=== PATIENT | male | born 1990 | race African-American/Black ===

== ENCOUNTER 2016-08-10 17:40 | Emergency (ER) | payer SELFPAY ==
[~2016-08-10] VITALS: Ht 167.6 cm; Wt 68.9 kg
[2016-08-10 17:53] VITALS: BP 116/76
[2016-08-10] MEDS ORDERED: Lidocaine 1% MPF 10mg/ml 5ml ONE (18:10)
[2016-08-10] MEDS ORDERED: VIBRAMYCIN100 MG ORAL (18:11)
--- NOTE | 2016-08-10 18:11 | Emergency Room Report ---
History of Present Illness General Chief Complaint: Male Urogenital Problems Source: Patient Present Illness HPI 25 yO Male presents to the ED c/o yellow-green penile d/c x 2 days with mild dysuria. pt reports recent unprotected intercourse. denies lesions, hematuria, or LAD. denies abdominal pain, n/v/f/c. Denies rashes, testicular pain or swelling. Denies CP, Palpitations, LOC, AMS, dizziness, Changes in Vision, Sensation, paresthesias, or a sudden severe headache. Allergies: Coded Allergies: No Known Allergies (Unverified , 08/10/16) Patient History Past Medical History: see triage record Past Surgical History: none Pertinent Family History: none Immunizations: UTD Reviewed Nursing Documentation: PMH: Agreed, PSxH: Agreed Nursing Documentation-PMH Past Medical History: No Stated History Review of Systems All Other Systems: negative except mentioned in HPI Physical Exam Vital Signs Date Time Temp Pulse Resp B/P Pulse Ox O2 Delivery O2 Flow Rate FiO2 08/10/16 17:48 97.5 93 14 116/76 97 Room Air Sp02 EP Interpretation: reviewed, normal General Appearance: no apparent distress, alert, GCS 15, non-toxic Head: normocephalic, atraumatic Eyes: bilateral eye PERRL, bilateral eye normal inspection ENT: hearing grossly normal, normal pharynx, no angioedema, normal voice Neck: full range of motion, supple/symm/no masses Respiratory: chest non-tender, lungs clear, normal breath sounds, speaking full sentences Cardiovascular #1: regular rate, rhythm, no edema Gastrointestinal: normal bowel sounds, non tender, soft, no guarding, no rebound Rectal: deferred Genitourinary: normal inspection, no CVA tenderness, penis normal, other - yellow-white d/c expressed from penis, no lesions, no erythema,no lad, no testicular pain. Musculoskeletal: back normal, gait/station normal, normal range of motion Neurologic: alert, oriented x3, responsive, motor strength/tone normal, sensory intact, speech normal Psychiatric: judgement/insight normal, memory normal, mood/affect normal, no suicidal/homicidal ideation Skin: normal color, no rash, warm/dry, well hydrated Lymphatic: no adenopathy Medical Decision Making PA Attestation Dr. Ayala is my supervising Physician whom patient management has been discussed with. Diagnostic Impression: Primary Impression: Penile discharge ER Course 25 yO Male presents to the ED c/o yellow-green penile d/c x 2 days with mild dysuria. pt reports recent unprotected intercourse. denies lesions, hematuria, or LAD. denies abdominal pain, n/v/f/c. Ddx considered but are not limited to UTi , STI, G & C, trichomonas, urethritis Vital signs: are WNL, pt. is afebrile H&PE are most consistent with urethritis will treat prophylactically ORDERS: - Urine G & C: Pending ED INTERVENTIONS: -250mg Rocephin IM DISCHARGE: At this time pt. is stable for d/c to home. Will provide printed patient care instructions, and any necessary prescriptions. Care plan and follow up instructions have been discussed with the patient prior to discharge. Last Vital Signs Date Time Temp Pulse Resp B/P Pulse Ox O2 Delivery O2 Flow Rate FiO2 08/10/16 17:53 97.5 87 14 116/76 99 Room Air Disposition: HOME, SELF-CARE Condition: Stable Scripts Doxycycline Hyclate* (VIBRAMYCIN*) 100 Mg Capsule 100 MG ORAL EVERY 12 HOURS for 7 Days, #14 CAP 0 Refills Prov: Kori Curtis 08/10/16 Patient Instructions: Urethritis, Adult Additional Instructions: Take medications as directed. MAKE SURE YOUR PARTNERS GET TREATED WITH ANTIBIOTICS to prevent becoming re- infected No intercourse for 7-10 days, as you are infectious and can spread the bacterial infection. Follow up with PCP in 3-5 days Return sooner to ED if new symptoms occur, or current symptoms become - Please note that this Emergency Department Report was dictated using My [employer] App[employer] aide technology software, occasionally this can lead to erroneous entry secondary to interpretation by the dictation equipment. Kori Curtis Aug 10, 2016 18:11
[2016-08-10 18:20] VITALS: BP 116/76
== END 2016-08-10 18:20 | disposition home or self-care (01) ==
LOC: EMR 18:11
DX: R36.9 Urethral discharge, unspecified (principal)
CPT/HCPCS: 87491; 87590; 96372; 99283; J0696

== ENCOUNTER 2017-08-18 02:06 | Emergency (ER) | payer OTHER ==
[~2017-08-18] VITALS: Ht 167.6 cm; Wt 70.3 kg
[~2017-08-18 02:06] MED LIST: VIBRAMYCIN100 MG ORAL
[2017-08-18] MEDS ORDERED: NKM (02:11)
[2017-08-18 02:22] VITALS: BP 135/85
[2017-08-18] MEDS ORDERED: Lidocaine 1% MPF 10mg/ml 5ml INJ ONE (02:30)
[2017-08-18] MEDS ORDERED: Azithromycin 250mg tab ORAL ONE (02:30)
[2017-08-18] MEDS ORDERED: cefTRIAXone 1 GM in NS 55 ML IVPB ONE (02:30)
--- NOTE | 2017-08-18 02:33 | Emergency Room Report ---
History of Present Illness General Chief Complaint: Male Urogenital Problems Source: Patient Present Illness HPI 26-year-old male presenting with 1 day of penile discharge. Thick, white, states that he had unprotected sex. No fever no chills no back pain no abdominal pain. Allergies: Coded Allergies: No Known Allergies (Unverified , 08/10/16) Patient History Past Medical History: see triage record Past Surgical History: none Pertinent Family History: none Reviewed Nursing Documentation: PMH: Agreed; PSxH: Agreed Nursing Documentation-PMH Past Medical History: No Stated History Review of Systems All Other Systems: negative except mentioned in HPI Physical Exam Vital Signs Date Time Temp Pulse Resp B/P (MAP) Pulse Ox O2 Delivery O2 Flow Rate FiO2 08/18/17 02:09 97.4 89 14 135/85 99 Room Air 97.3 Sp02 EP Interpretation: reviewed, normal General Appearance: alert, GCS 15, non-toxic, mild distress Head: normocephalic, atraumatic Eyes: bilateral eye normal inspection, bilateral eye PERRL, bilateral eye EOMI ENT: normal ENT inspection, normal pharynx, normal voice, moist mucus membranes Neck: normal inspection, full range of motion, supple Respiratory: normal inspection, lungs clear, normal breath sounds, no respiratory distress, no retraction, no wheezing, speaking full sentences, chest symmetrical Cardiovascular #1: normal inspection, regular rate, rhythm, no edema, normal capillary refill Cardiovascular #2: 2+ radial (R), 2+ radial (L) Gastrointestinal: normal inspection, non tender, soft, non-distended, no guarding Genitourinary: no CVA tenderness Musculoskeletal: normal inspection, back normal, normal range of motion, non- tender Neurologic: normal inspection, alert, oriented x3, responsive, motor strength/ tone normal, sensory intact, normal gait, speech normal Psychiatric: normal inspection, judgement/insight normal, memory normal Skin: normal inspection, normal color, no rash, warm/dry, well hydrated, normal turgor Medical Decision Making Diagnostic Impression: Primary Impression: Concern about STD in male without diagnosis ER Course 26-year-old male with penile discharge DDX: Likely STD Plan: Treat empirically ER course: Patient has remained stable during ED stay. Given ceftriaxone and azithromycin Disposition: Patient is to be discharged to home. Told to follow-up with primary care doctor for retesting, told to refrain from any sexual activity Please note that this Emergency Department Report was dictated using [employer] and health manager technology software, occasionally this can lead to erroneous entry secondary to interpretation by the dictation equipment Last Vital Signs Date Time Temp Pulse Resp B/P (MAP) Pulse Ox O2 Delivery O2 Flow Rate FiO2 08/18/17 02:22 97.3 89 14 135/85 99 Room Air 97.3 Disposition: HOME, SELF-CARE Condition: Stable Referrals: [facility],REFERRING (PCP) Patient Instructions: Sexually Transmitted Disease, [id number] Additional Instructions: PLEASE FOLLOW UP WITH YOUR DOCTOR IN 2 WEEKS FOR RE-TESTING Rashaun Gil M.D. Aug 18, 2017 02:33
[2017-08-18 02:39] LABS: BILIRUBIN, URINE NEGATIVE (NEGATIVE); COLOR,URINE PALE YELLOW; GLUCOSE, URINE (UA) NEGATIVE (NEGATIVE); KETONES,URINE NEGATIVE (NEGATIVE); LEUKOCYTE ESTERASE ,URINE 3+ (NEGATIVE); NITRITE,URINE NEGATIVE (NEGATIVE); PH,URINE 7 (4.5-8.0); PROTEIN,URINE 1+ (NEGATIVE); UROBILINOGEN,URINE 1 MG/DL (0.0-1.0)
[2017-08-18 02:41] VITALS: BP 135/85
[2017-08-18 02:45] LABS: APPEARANCE,URINE SLIGHTLY CLOUDY
== END 2017-08-18 02:42 | disposition home or self-care (01) ==
LOC: EDBD 02:06 → EMR 02:31
DX: R36.9 Urethral discharge, unspecified (principal)
CPT/HCPCS: 81003; 87086; 96372; 99283; J0696; Q0144

== ENCOUNTER 2017-09-19 16:58 | Emergency (ER) | payer OTHER ==
[~2017-09-19] VITALS: Ht 167.6 cm; Wt 68.0 kg
[~2017-09-19 16:58] MED LIST changes: +NKM
--- NOTE | 2017-09-19 17:23 | Emergency Room Report ---
History of Present Illness General Chief Complaint: Male Urogenital Problems Source: Patient Present Illness HPI 26-year-old male patient presents ER complaining of penile discharge 1 day. patient requesting treatment for STI. Reports recent sexual activity, states used protection but also had oral sex performed and believes that his partner has infection. Denies hematuria. Reports green discharge. Denies rashes or testicular swelling. Denies fever, chest pain, pelvic pain, flank pain. Allergies: Coded Allergies: No Known Allergies (Unverified , 08/10/16) Patient History Past Medical History: see triage record Reviewed Nursing Documentation: PMH: Agreed; PSxH: Agreed Nursing Documentation-PMH Past Medical History: No Stated History Review of Systems All Other Systems: negative except mentioned in HPI Physical Exam Vital Signs Date Time Temp Pulse Resp B/P (MAP) Pulse Ox O2 Delivery O2 Flow Rate FiO2 09/19/17 17:17 98.1 95 18 130/84 96 Room Air 98.1 Sp02 EP Interpretation: reviewed, normal General Appearance: well appearing, no apparent distress, alert, GCS 15, non- toxic Head: normocephalic, atraumatic Eyes: bilateral eye normal inspection, bilateral eye PERRL ENT: hearing grossly normal, normal pharynx, no angioedema, normal voice, uvula midline, moist mucus membranes Neck: full range of motion Respiratory: lungs clear, normal breath sounds, no rhonchi, no respiratory distress, no accessory muscle use, no wheezing, speaking full sentences Cardiovascular #1: regular rate, rhythm, no edema Gastrointestinal: non tender, soft, no mass, non-distended, no guarding, no rebound Genitourinary: no CVA tenderness Musculoskeletal: back normal, digits/nails normal, gait/station normal, normal range of motion, non-tender Psychiatric: mood/affect normal Skin: no rash Medical Decision Making PA Attestation Dr. Gil is my supervising Physician whom patient management has been discussed with. Diagnostic Impression: Primary Impression: Concern about STD in male without diagnosis ER Course Pt. presents to the ED c/o STI. Ddx considered but are not limited to gonorrhea, chlamydia, cystitis, pyelonephritis. Vital signs: are WNL, pt. is afebrile ORDERS: UA negative for infection. ED INTERVENTIONS: -Azithromycin and Rocephin provided in ER. Patient decline UA at this time, does not think its UTI. Will follow-up with STI clinic for further treatment and diagnosis. Avoid sexual contact until cleared by PCP. informed patient to contact sexual partner to alert for need of testing and treatment. Patient reports will contact sexual partner. Patient denies other acute symptoms. Denies testicular swelling, genital lesions. Instructed patient to use protection while having sex. Informed patient that long-term,complications can result from repeated exposure to STI. Patient reports understanding. DISCHARGE: Advised to use safe sex practices including but not limited to use of condoms. Instructed patient to follow up with STI clinic and/or PCP for future STI treatment and prevention. Instructed patient to inform partner of need for treatment to prevent future infection. Patient is resting comfortably, in no acute distress, nontoxic appearing, talking without difficulty. Patient to take medications as instructed Will provide with patient care instructions and any necessary prescriptions. Care plan and follow-up instructions provided. Patient instructed to follow-up with primary care provider in 3 - 5 days. Patient questions asked and answered. Patient reports understanding and agreement to treatment plan. ER precautions given. Patient instructed to return to ER immediately for any new or worsening of symptoms including but not limited to increasing SOB, persistent fever. - Please note that this Emergency Department Report was dictated using [employer]2Launchplug cutter technology software, occasionally this can lead to erroneous entry secondary to interpretation by the dictation equipment. Last Vital Signs Date Time Temp Pulse Resp B/P (MAP) Pulse Ox O2 Delivery O2 Flow Rate FiO2 09/19/17 17:17 98.1 95 18 130/84 96 Room Air 98.1 Disposition: HOME, SELF-CARE Condition: Stable Patient Instructions: Sexually Transmitted Disease, [id number] Additional Instructions: Followup with primary care provider. Alert partners to need for testing. Followup with STI clinic for testing and further treatment as needed. Drink plenty of fluids. Patient questions asked and answered. ER precautions given, patient instructed to return to ER immediately for any new or worsening of symptoms. Eddie Yi September 19, 2017 17:23
[2017-09-19] MEDS ORDERED: Lidocaine 1% MPF 10mg/ml 5ml INJ ONE (17:30)
[2017-09-19] MEDS ORDERED: Azithromycin 250mg tab ORAL ONE (17:30)
[2017-09-19 17:45] VITALS: BP 130/84
[2017-09-19 17:55] VITALS: BP 130/84
== END 2017-09-19 17:55 | disposition home or self-care (01) ==
LOC: EMR 17:54
DX: R36.9 Urethral discharge, unspecified (principal)
CPT/HCPCS: 96372; 99283; J0696; Q0144

== ENCOUNTER 2017-11-18 03:48 | Emergency (ER) | payer OTHER ==
[~2017-11-18] VITALS: Ht 167.6 cm; Wt 70.8 kg
[2017-11-18 04:11] VITALS: BP 145/90
[2017-11-18 04:15] VITALS: BP 145/90
--- NOTE | 2017-11-18 04:21 | Emergency Room Report ---
History of Present Illness General Chief Complaint: Skin Rash/Abscess Source: Patient Present Illness HPI Is a 26-year-old male with no significant past medical history. He presents with chief complaint of rectal pain. Onset for last 3 days. He felt 2 large mass in that area. Try [id number] medication without helping. Denies any other complaint. Pain is 10 out of 10. Allergies: Coded Allergies: No Known Allergies (Unverified , 08/10/16) Patient History Past Medical History: see triage record, old chart reviewed Past Surgical History: other Pertinent Family History: none Social History: Reports: smoking, drug use - marijuana Immunizations: other Reviewed Nursing Documentation: PMH: Agreed; PSxH: Agreed Nursing Documentation-PMH Past Medical History: No Stated History Review of Systems Eye: Denies: eye pain, blurred vision ENT: Denies: ear pain, nose congestion, throat swelling Respiratory: Denies: cough, shortness of breath Cardiovascular: Denies: chest pain, palpitations Gastrointestinal: Denies: abdominal pain, diarrhea, nausea, vomiting Musculoskeletal: Denies: back pain, joint pain Skin: Denies: rash Neurological: Denies: headache, numbness Endocrine: Denies: increased thirst, increased urine Hematologic/Lymphatic: Denies: easy bruising All Other Systems: negative except mentioned in HPI Physical Exam Vital Signs Date Time Temp Pulse Resp B/P (MAP) Pulse Ox O2 Delivery O2 Flow Rate FiO2 11/18/17 04:00 97.9 87 16 145/90 99 Room Air 97.9 vitals normal Sp02 EP Interpretation: reviewed, normal General Appearance: well appearing, no apparent distress, alert Head: normocephalic, atraumatic Eyes: bilateral eye PERRL, bilateral eye EOMI ENT: hearing grossly normal, normal pharynx Neck: full range of motion, supple, no meningismus Respiratory: chest non-tender, lungs clear, normal breath sounds Cardiovascular #1: regular rate, rhythm, no murmur Gastrointestinal: normal bowel sounds, non tender, no mass, no organomegaly, no bruit, non-distended Rectal: other - 2 large partially thrombosed hemorrhoids. Musculoskeletal: back normal, gait/station normal, normal range of motion Neurologic: alert, oriented x3 Psychiatric: mood/affect normal Skin: warm/dry Medical Decision Making Diagnostic Impression: Primary Impression: Hemorrhoids Qualified Codes: K64.9 - Unspecified hemorrhoids ER Course Patient presents with 2 large partially thrombosed hemorrhoid. I wanted to I and D it to relief the pain. Patient said that he is extremely scared of needles even though he has numerous tattoos on his face, neck and body. I try reassure him that this will make him feel better. After several attempts, he said he doesn't want to do it anymore. He got up and walked out. Last Vital Signs Date Time Temp Pulse Resp B/P (MAP) Pulse Ox O2 Delivery O2 Flow Rate FiO2 11/18/17 04:11 97.9 87 16 145/90 99 Room Air 97.9 Status: unchanged Disposition: AGAINST MEDICAL ADVICE DIAN HSU M.D. Nov 18, 2017 04:21
== END 2017-11-18 04:30 | disposition left against medical advice (07) ==
LOC: EMR 04:21
DX: K64.9 Unspecified hemorrhoids (principal); F17.200 Nicotine dependence, unspecified, uncomplicated
CPT/HCPCS: 99282

== ENCOUNTER 2020-01-15 01:39 | Emergency (ER) | payer OTHER ==
[~2020-01-15] VITALS: Ht 167.6 cm; Wt 72.6 kg
[2020-01-15 01:50] VITALS: BP 134/72
--- NOTE | 2020-01-15 01:50 | NUR ---
ED Nurse Note: Patient walked into ED for c/o dysuria and yellow discharge coming from penis that started today. Patient reports unprotected sex with partner. Patient is aaox4, breathing is normal and unlabored. NAD.
[2020-01-15] MEDS ORDERED: Lidocaine 1% MPF 10mg/ml 5ml INJ ONE (02:00)
[2020-01-15] MEDS ORDERED: Azithromycin 250mg tab ORAL ONE (02:00)
--- NOTE | 2020-01-15 02:00 | Emergency Room Report ---
History of Present Illness General Chief Complaint: Male Urogenital Problems Source: Patient Present Illness HPI 29-year-old male with no past medical history here with penile discharge and dysuria. Patient says that the symptoms started earlier today. Patient is sexually active with women and says that he does not use condoms consistently. He had sexual intercourse with a woman several days ago without a condom. Patient is unaware whether any of his sexual partners in the recent past have had any symptoms. He is not concerned about HIV and not wishing to be tested for HIV. Says the discharge is yellow. No skin lesions. No testicular pain. Denies fevers, chills, abdominal pain, nausea, vomiting, diarrhea. 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 13, 2019 COVID-19 Screening: Negative COVID-19 COVID-19 Testing Source: [place] Nursing Documentation-[facility] Past Medical History: No Stated History Review of Systems All Other Systems: negative except mentioned in HPI Physical Exam Vital Signs Date Time Temp Pulse Resp B/P (MAP) Pulse Ox O2 Delivery O2 Flow Rate FiO2 01/15/20 01:46 97.9 96 20 134/72 (92) 96 Room Air Sp02 EP Interpretation: reviewed, normal General Appearance: no apparent distress, alert, non-toxic Head: normocephalic, atraumatic Eyes: bilateral eye normal inspection, bilateral eye PERRL ENT: hearing grossly normal, normal pharynx, no angioedema, normal voice Neck: full range of motion, supple/symm/no masses Respiratory: chest non-tender, lungs clear, normal breath sounds, speaking full sentences Cardiovascular #1: regular rate, rhythm, no edema Cardiovascular #2: 2+ carotid (R), 2+ carotid (L), 2+ radial (R), 2+ radial (L) , 2+ dorsalis pedis (R), 2+ dorsalis pedis (L) Gastrointestinal: normal bowel sounds, non tender, soft, non-distended, no guarding, no rebound Rectal: deferred Genitourinary: normal inspection, no CVA tenderness, scrotum normal, other - No active discharge on examination. No skin lesions. No testicular pain. Musculoskeletal: back normal, normal range of motion, calf tenderness, gait/ station normal, non-tender Neurologic: alert, motor strength/tone normal, oriented x3, sensory intact, responsive, speech normal Psychiatric: judgement/insight normal, memory normal, mood/affect normal, no suicidal/homicidal ideation Reflexes: 3+ bicep (R), 3+ bicep (L), 3+ tricep (R), 3+ tricep (L), 3+ knee (R) , 3+ knee (L) Lymphatic: no adenopathy Medical Decision Making Diagnostic Impression: Primary Impression: STI (sexually transmitted infection) Additional Impression: Urethritis ER Course 29-year-old male here with dysuria and penile discharge. Patient was hemodynamically stable in the emergency department and a completely normal physical examination. There were no genital lesions. He said that he was having yellow penile discharge but there is no active discharge on examination. Patient be treated empirically for gonorrhea and chlamydia with ceftriaxone and azithromycin in the emergency department. Told to come back to the emergency department if he is having worsening dysuria, worsening discharge, testicular pain, fevers, chills, vomiting, abdominal pain. He expressed understanding and was discharged. Last Vital Signs Date Time Temp Pulse Resp B/P (MAP) Pulse Ox O2 Delivery O2 Flow Rate FiO2 01/15/20 01:46 97.9 96 20 134/72 (92) 96 Room Air Disposition: HOME, SELF-CARE Condition: Stable Referrals: NON PHYSICIAN (PCP) [facility] *Patients are seen by appointment only* Patient Instructions: Urethritis, Adult Additional Instructions: Please follow-up with your primary care doctor in the next 1 to 3 days to discuss this emergency department visit and for reevaluation. If you have any new or worsening symptoms please return to the emergency department for reevaluation. Davis Ann M.D. Jan 15, 2020 02:00
[2020-01-15 02:10] VITALS: BP 130/69
--- NOTE | 2020-01-15 02:10 | NUR ---
ER DISCHARGE NOTE: Patient is cleared to be discharged per ERMD, pt is aox4, on room air, with stable vital signs. pt was given dc instructions, pt was able to verbalize understanding, pt id band removed. pt is able to ambulate with steady gait. pt took all belongings.
[2020-01-15 02:34] LABS: APPEARANCE,URINE CLEAR; BILIRUBIN, URINE NEGATIVE (NEGATIVE); GLUCOSE, URINE (UA) NEGATIVE (NEGATIVE); KETONES,URINE NEGATIVE (NEGATIVE); NITRITE,URINE NEGATIVE (NEGATIVE); PH,URINE 6 (4.5-8.0); PROTEIN,URINE NEGATIVE (NEGATIVE); UROBILINOGEN,URINE 4 MG/DL (0.0-1.0)
[2020-01-15 02:44] LABS: COLOR,URINE YELLOW; LEUKOCYTE ESTERASE ,URINE NEGATIVE (NEGATIVE)
== END 2020-01-15 02:10 | disposition home or self-care (01) ==
LOC: EMR 01:59
DX: A64 Unspecified sexually transmitted disease (principal); N34.2 Other urethritis
CPT/HCPCS: 81003; 96372; 96374; J0696; Q0144; Z7502; 99284